=== PATIENT | female | born 1950 | race Caucasian/White ===

== ENCOUNTER → 2022-06-29 | Outpatient (CLI) | payer MEDICARE, MEDICAID, SELFPAY ==
--- NOTE | 2022-06-29 13:06 | CT_ITS ---
INDICATION: Constipation/Abdominal Pain EXAMINATION: CT Abdomen And Pelvis W/ Contrast Injection TECHNIQUE: Helically acquired images were obtained of the abdomen and pelvis after IV contrast. A radiation dose optimization technique was used for this scan. IV Contrast dosage and agent: Oral and amp; IV Readi-CAT and amp; 100mL Isovue-300 Oral contrast: None. COMPARISON: None. FINDINGS: Visualized lung bases: Unremarkable Liver: Unremarkable Gallbladder: Few small intraluminal stones seen. Spleen: Unremarkable Pancreas: Unremarkable Adrenal Glands: Unremarkable Kidneys: Unremarkable Vasculature: Unremarkable GI Tract: Unremarkable Lymphadenopathy: None Peritoneum: No ascites. Bladder: Unremarkable Reproductive organs: Unremarkable Bones/Soft tissues: Mild scattered degenerative changes of the visualized spine. CT/Abdomen/Pelvis WITH Contrast IMPRESSION: No acute abnormalities in the abdomen or pelvis. Cholelithiasis. Electronically Signed: Maximiliano Garcia MD at 21:16 EDT ,
[2022-06-29 13:26] LABS: EGFR FINGERSTICK > 60.0000 mL/min (>60)
== END | disposition home or self-care (01) ==
PROVIDERS: Referring Provider Internal Medicine Gastroenterology; Visit Provider Internal Medicine Gastroenterology
DX: K59.00 Constipation, unspecified (principal)
CPT/HCPCS: 74177; Q9967

== ENCOUNTER 2023-03-23 09:50 | Outpatient (RCR) | payer MEDICARE, MEDICAID, SELFPAY | END 2023-04-20 23:59 | LOC: NS 09:50 | PROVIDERS: PCP Family Medicine; Referring Provider Internal Medicine Gastroenterology; Visit Provider Internal Medicine Gastroenterology | DX: Z71.3 Dietary counseling and surveillance (principal); K59.00 Constipation, unspecified; E11.9 Type 2 diabetes mellitus without complications | CPT/HCPCS: 97802 ==

== ENCOUNTER → 2023-07-26 | Outpatient (CLI) | payer MEDICAID, MEDICARE, SELFPAY ==
--- NOTE | 2023-07-26 | LES_PTH ---
PATIENT: JAN SALDANA [facility]: [facility] U#:[id number] AGE/SX: 73/F ROOM: RE07/26/[address]: Dr. George Manriquez MD : 1950 BED: DIS: 07/26/2023 SPEC #: [id number] RECD: 07/26/23 17:39 STATUS: KALLIE TREVINODevaughn #: [id number] CORI: 07/26/23 00:[address]: George Manriquez DEPT: SURGICAL PATHOLOGY RECD BY: Cody Herring ENTERED: 07/27/23 07:17 SP TYPE: Lesion OTHR DR: Dr. 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 STEPHAN/ 07/28/23 MICROSCOPIC DESCRIPTION Slides are reviewed. GROSS DESCRIPTION Received in fixative is one container labeled with the patient's name and designated Right upper lid. The specimen consists of a piece of baker-white skin measuring 1.0 x 0.5 x 0.2cm. The specimen is inked, serially sectioned and submitted entirely in one cassette. STEPHAN/ 07/27/2023 TC:5 CPT:99800
== END | disposition home or self-care (01) ==
PROVIDERS: PCP Family Medicine; Visit Provider Ophthalmology
DX: H02.9 Unspecified disorder of eyelid (principal)
CPT/HCPCS: 88305